=== PATIENT | female | born 1940 | race Caucasian/White ===

== ENCOUNTER → 2017-07-27 | Outpatient (CLI) | payer MEDICARE, OTHER ==
--- NOTE | ~2017-07-27 | PUL ---
PATIENT'S NAME: JUNIE CARTY [facility] AGE: 77 Y [address] ROOM: [place] [address] LOCATION: [facility] ADMIT DATE: 07/27/2017 Pulmonary DISCHARGE DATE: FAMILY PHYSICIAN: Park Bedoya MD ATTENDING PHYSICIAN: Park Bedoya NAME OF PROCEDURE: Sleep Study PROCEDURE DATE: 07/27/17 TECH: AMEENA Mata TEST #: [facility]# [id number] TECHNICAL PARAMETERS: The patient was studied using International 10/20 measuring system. While the patient was studied, there was continuous monitoring of EEG (8 leads), EOG (2 leads), EKG (3 leads), submental EMG (3 leads), tibial (4 leads), respiratory inductive plethysmography (RIP) for thoracic and abdominal effort, oral and nasal airflow with a thermocouple and pressure transducer, and oximetry. The dietetic technician registered also performed visual and auditory observations noting things like body position, patient's status, breath sounds, artifact, snoring level and patient comments. Continuous sound was monitored using a 2-way speaker system and video monitoring was performed using an infrared camera. Review of the entire study was performed epoch by epoch utilizing a single epoch and multiple epoch capability sleep system. MEDICAL HISTORY: The patient is a 77-year-old woman with daytime sleepiness and snoring. SLEEP STAGE SUMMARY: The patient was studied for 459 minutes of which she slept 412 minutes. She fell asleep in 20 minutes and slept for 90% of the night. Sleep architecture revealed a mild decline in REM sleep. RESPIRATORY SUMMARY: Oxygen saturations ranged from 86-91%. Saturations were below 88% for 7 minutes. There were 3 obstructive apneas and 10 hypopneas for an apnea/hypopnea index normal at 1.9 events per hour. EKG SUMMARY: Average heart rate during sleep was 68 beats per minute. No dysrhythmias were noted. LIMB MOVEMENT SUMMARY: Periodic limb movements were noted. Limb movement index was 55 events per hour. Limb movement with arousal index was 12 events per hour. IMPRESSION: PATIENT'S NAME: JUNIE CARTY [facility] AGE: 77 Y [address] ROOM: [place] [address] LOCATION: [facility] ADMIT DATE: 07/27/2017 Pulmonary DISCHARGE DATE: FAMILY PHYSICIAN: Park Bedoya MD ATTENDING PHYSICIAN: Park Bedoya 1. Mild nocturnal hypoxemia. 2. Possible periodic limb movement disorder. PLAN: Patient will receive results from the ordering provider. MD NAVA TIERNEY/ /[id number] dtt: 08/02/17 0806 , Bradley Chirinos. dtd: 07/29/17 1221
== END | disposition disaster alternative care site (69) ==
LOC: GSLP 20:28
DX: G47.36 Sleep related hypoventilation in conditions classified elsewhere (principal); R09.02 Hypoxemia